=== PATIENT | female | born 1990 | race Caucasian/White ===

== ENCOUNTER 2016-07-27 16:50 | Emergency (ER) | payer MEDICAID ==
[~2016-07-27] VITALS: Ht 170.2 cm; Wt 99.8 kg
[2016-07-27] MEDS ORDERED: IV NORMAL SALINE 1000ML BAG 1,000 ML IV SCH (16:58)
[2016-07-27] MEDS ORDERED: ONDANSETRON PF 4 MG/2 ML VIAL. IV ONE (17:00)
[2016-07-27] MEDS ORDERED: MULTIVIT INFUSN,ADULT 4,VIT K 10 ML, FOLIC ACID 1 MG, THIAMINE 100 MG in IV NORMAL SALI... IV SCH (17:00)
[2016-07-27] MEDS ORDERED: 0.9 % SODIUM CHLORIDE 10 ML DISP.SYRIN. IV PRN (17:00)
--- NOTE | 2016-07-27 17:04 | PHYS DOC ---
Past Medical History Past Medical History: No Pertinent History Past Surgical History: (3) Smoking: Cigarettes, Less than 1pk/day Alcohol Use: Occasionally Drug Use: None Adult General Chief Complaint Chief Complaint: SYNCOPE HPI HPI Patient is a 25 year old pleasant female with no major medical problems who denies smoking and drinking today while at a [employer] admittedly imbibing too much alcohol became acutely nauseous and began vomiting on the concert grounds. She had lightheaded and dizzy with his vomiting and almost passed out. She denies any chest pain she does have some diffuse abdominal cramping with this nausea and vomiting nonbilious nonbloody emesis with no diarrhea no chills. Patient denies any UTI symptoms she denies being and has any fevers. She is traveled to [place] back in February 6 months ago denies any consumption of raw foods handling a poultry or reptiles. Patient does admit that she smokes some THC today which possibly some contaminant Plan at this time as supportive in nature IV fluids antiemetics and multivitamin and rest. Should the patient is not by ordering a serum test EtOH level to see how much this patient will need to search ensure sobriety before being released.. Review of Systems Review of Systems Constitutional: Denies fever or chills [] Eyes: Denies change in visual acuity, redness, or eye pain [] HENT: Denies nasal congestion or sore throat [] Respiratory: Denies cough or shortness of breath [] Cardiovascular: No additional information not addressed in HPI [] GI: Please of abdominal pain nausea vomiting but no bloody stools or diarrhea. : Denies dysuria or hematuria [] Musculoskeletal: Denies back pain or joint pain [] Integument: Denies rash or skin lesions [] Neurologic: Denies headache, complains on being lightheaded Endocrine: Denies polyuria or polydipsia [] Current Medications Current Medications Current Medications Medications (Trade) Dose Ordered Sig/Shubham Start Time Stop Time Status Last Admin Dose Admin Multivitamins 10 ml/Folic Acid 1 mg/Thiamine HCl 100 mg/Sodium Chloride 1,011.2 ml @ 1,000 mls/ hr Q1H 07/27/16 17:00 07/27/16 17:27 DC 07/27/16 17:27 1,000 MLS/HR Ondansetron HCl (Zofran) 4 mg 1X ONCE 07/27/16 17:00 07/27/16 17:07 DC 07/27/16 17:00 4 MG Sodium Chloride 1,000 ml @ 1,000 mls/hr Q1H 07/27/16 16:58 07/27/16 17:57 DC 07/27/16 16:58 1,000 MLS/HR Sodium Chloride (Normal Saline Flush) 10 ml QSHIFT PRN 07/27/16 17:00 07/27/16 17:26 10 ML Allergies Allergies Allergies Coded Allergies Type Severity Reaction Last Updated Verified Unable to Assess 07/27/16 No Physical Exam Physical Exam Obese female tachycardic And anxious. Constitutional: Well developed, well nourished, patient is mildly to With vomit over her lower extremities. HENT: Normocephalic, atraumatic, bilateral external ears normal, oropharynx moist, no oral exudates, nose normal. [] Eyes: PERRLA, EOMI, conjunctiva normal, no discharge. [] Neck: Normal range of motion, no tenderness, supple, no stridor. [] Cardiovascular: Patient is tachycardic with no murmurs Rubs. Lungs & Thorax: Bilateral breath sounds clear to auscultation [] Abdomen: Bowel sounds normal, soft, no tenderness, no masses, no pulsatile masses. No guarding rebound or organomegaly Skin: Warm, dry, no erythema, no rash. [] Back: No tenderness, no CVA tenderness. [] Extremities: No tenderness, no cyanosis, no clubbing, ROM intact, no edema. [] Neurologic: Alert and oriented X 3, normal motor function, normal sensory function, no focal deficits noted. [] Psychologic: Patient is anxious but able to answer questions Current Patient Data Vital Signs Vital Signs Date Time Temp Pulse Resp B/P (MAP) Pulse Ox O2 Delivery O2 Flow Rate FiO2 07/27/16 16:45 98.9 107 18 136/70 (92) 97 Room Air 98.9 Lab Values Laboratory Tests Test 07/27/16 16:50 07/27/16 17:35 Serum Test, Qualitative Negative (NEG) Ethyl Alcohol Level 64 mg/dL (0-10) H Urine Opiates Screen Neg (NEG) Urine Methadone Screen Neg (NEG) Urine Barbiturates Neg (NEG) Urine Phencyclidine Screen Neg (NEG) Urine Amphetamine/Methamphetamine Neg (NEG) Urine Benzodiazepines Screen Neg (NEG) Urine Cocaine Screen Neg (NEG) Urine Cannabinoids Screen Pos (NEG) Urine Ethyl Alcohol Pos (NEG) EKG EKG [] KG read by Dr. Wills time 1705 p.m. 07/27/2016 demonstrates sinus rhythm rate of 97 CT interval of 148 QRS normal at [address] segment or T-wave changes consistent with ischemia is some nonspecific T-wave flattening in the inferior lead V3 only otherwise normal looking EKG. Radiology/Procedures Radiology/Procedures [] Course & Med Decision Making Course & Med Decision Making Pertinent Labs and Imaging studies reviewed. (See chart for details) Patient with nausea vomiting likely secondary to imbibing too much alcohol and being in a warm environment not drinking or eating appropriate food. Patient be given supportive care including fluids antiemetics and a multivitamin. Patient' s EtOH OB measure to ensure that she has demonstrated in clinical [place] prior to being discharged with family. [] Patient tells me that their symptoms given during CC are improved. We reviewed labs and radiology reports with patient and any family at bedside. Patient started improved given fluids antiemetics and banana bag to include multivitamin she is no longer dizzy time is 5:40 PM Patient tells me that their symptoms given during CC are improved. We reviewed labs and radiology reports with patient and any family at bedside. Time 6:25 EtOH level 64 patient is now clinically sober will go home with family with supportive medications. Urine drug screen is positive for THC and alcohol only Impression alcohol intoxication nausea and vomiting heat cramps disposition discharged home with family encourage oral hydration and cessation of alcohol and illegal drug use. He is to follow-up for routine care. Dragon Disclaimer Dragon Disclaimer This electronic medical record was generated, in whole or in part, using a voice recognition dictation system. Departure Departure Impression: Primary Impression: Alcohol intoxication Additional Impressions: Nausea & vomiting Vasovagal near syncope Disposition: 01 HOME, SELF-CARE Condition: IMPROVED Patient Instructions: Alcohol Intoxication, Nausea and Vomiting Additional Instructions: Please return for any new or increasing symptoms, I would encourage her not to drink alcohol and not eat food or drink water in a hot environment. This put her at increased risk for heat injury. Please use illegal drugs as she did not know exactly which are concerning. Problem Qualifiers NITA WILLS MD Jul 27, 2016 17:04
[2016-07-27 17:54] LABS: NEG OBC SER NEG; POS OBC SER POS
[2016-07-27 18:07] LABS: BARBITURATES NEG (NEG); BENZODIAZEPINES NEG (NEG); CANNABINOIDS POS (NEG); COCAINE NEG (NEG); METHADONE NEG (NEG); OPIATES NEG (NEG); PHENCYCLIDINE NEG (NEG)
[2016-07-27 18:15] VITALS: BP 120/78
--- NOTE | 2016-07-28 07:37 | EKG ---
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 RI6.01 Unconfirmed report No previous ECG available for comparison Electronically Signed On 07-31-2016 9:45:28 CDT by Scooter Ahumada
== END 2016-07-27 18:41 | disposition home or self-care (01) ==
LOC: ER 16:50
DX: F10.129 Alcohol abuse with intoxication, unspecified (principal); F17.210 Nicotine dependence, cigarettes, uncomplicated; R11.2 Nausea with vomiting, unspecified; R55 Syncope and collapse; Y90.3 Blood alcohol level of 60-79 mg/100 ml
CPT/HCPCS: 36415; 80305; 80320; 84703; 93005; 96365; 96375; 99285; J2405; J7030; G0480; G0481